=== PATIENT | female | born 2005 | race Asian ===

== ENCOUNTER 2023-01-04 17:43 | Emergency (ER) | payer OTHER ==
[2023-01-04 17:48] VITALS: BP 102/66; PULSE 91; RESP 18; TEMP 97.8; BMI 19.9
[2023-01-04] MEDS ORDERED: DEXTROMETHORPHAN/PROMETHAZINE 15 MG/6.25 MG/5 ML SYRUP PO ONE (18:20)
[2023-01-04 19:06] LABS: THROAT:GRP A STREP NOT DETECTED (NOTDETECTED)
== END 2023-01-04 20:22 | disposition home or self-care (01) ==
LOC: JERFT 17:43 → JER 17:43 → JERFT 20:22
DX: J02.8 Acute pharyngitis due to other specified organisms (principal); R05.1 Acute cough; R13.10 Dysphagia, unspecified; R09.81 Nasal congestion; R51.9 Headache, unspecified; Z20.822 Contact with and (suspected) exposure to COVID-19
CPT/HCPCS: 0241U-QW; 87651; 99283-25

== ENCOUNTER 2023-03-22 16:17 | Emergency (ER) | payer OTHER ==
[2023-03-22 16:22] VITALS: BP 104/65; PULSE 97; RESP 20; TEMP 98; BMI 18.4
[2023-03-22] MEDS ORDERED: KETOROLAC TROMETHAMINE 30 MG/1 ML VIAL ONE (17:41)
[2023-03-22] MEDS ORDERED: METOCLOPRAMIDE HCL INJECTION 10 MG/2 ML VIAL ONE (17:41)
[2023-03-22] MEDS ORDERED: ACETAMINOPHEN INJECTION 100 ML IVPB ONE (17:41)
[2023-03-22] MEDS: METOCLOPRAMIDE HCL INJECTION 10 MG/2 ML VIAL IVPUSH ONE (17:56)
[2023-03-22] MEDS: KETOROLAC TROMETHAMINE 30 MG/1 ML VIAL IVPUSH ONE (17:56)
[2023-03-22] MEDS ORDERED: MAGNESIUM SULFATE IN WATER 2 GM/50 ML IVPB IVPB ONE (18:03)
[2023-03-22] MEDS: ACETAMINOPHEN 1000 MG/100 ML BAG IVPB ONE (18:06)
[2023-03-22] MEDS: MAGNESIUM SULF 50% (8.12 MEQ/2 ML-1 GM VIAL) IVPB ONE (18:07)
[2023-03-22] MEDS: LACTATED RINGERS SOLUTION 1000 ML INFUS.BAG IV ONE (18:07)
[2023-03-22 18:10] LABS: BASO % 0.3 % (0-2.0); EOS % 0.1 % (0-4.5); HEMATOCRIT 36.2 % (32.4-45.2); HEMOGLOBIN 12.1 GM/dL (10.7-15.3); LYMPH % 10.5 % (8-40); MCH 29.5 pg (25.7-33.7); MCHC 33.5 g/dl (32.0-36.0); MEAN CELL VOLUME 88.1 fl (80-96); MEAN PLT VOLUME 8.3 fl (7.5-11.1); MONO % 7.2 % (3.8-10.2); NEUT % 81.9 % (42.8-82.8); PLATELET COUNT 219 10^3/uL (134-434); RBC 4.11 M/mm3 (3.60-5.2); RDW 13.7 % (11.6-15.6); WHITE BLOOD COUNT 11.3 K/mm3 (4.0-10.0)
[2023-03-22 18:39] LABS: POTASSIUM 4.2 mmol/L (3.5-5.1)
[2023-03-22 18:41] LABS: CALCIUM 9.1 mg/dL (8.5-10.1)
[2023-03-22 18:42] LABS: ALBUMIN 3.6 g/dl (3.4-5.0); BLOOD UREA NITROGEN 12.3 mg/dL (7-18); MAGNESIUM 1.8 mg/dL (1.8-2.4)
[2023-03-22 18:45] LABS: CREATININE 0.7 mg/dL (0.55-1.3)
[2023-03-22 18:47] LABS: BILIRUBIN,TOTAL 0.5 mg/dL (0.2-1); TOT PROT 7.4 g/dl (6.4-8.2)
[2023-03-22] MEDS ORDERED: AMOX TR/POT CLAV 500MG/125MG TABLETS (FP) ONE (18:51)
[2023-03-22] MEDS: AMOXICILLIN 500 MG CAPSULE (FP) PO ONE (18:53)
== END 2023-03-22 19:15 | disposition home or self-care (01) ==
LOC: JERFT 16:17
PROC: 3E033GC Introduction of Other Therapeutic Substance into Peripheral Vein, Percutaneous Approach (ICD-10-PCS; principal; 2023-03-22)
PROC: 3E033GC Introduction of Other Therapeutic Substance into Peripheral Vein, Percutaneous Approach (ICD-10-PCS; 2023-03-22)
PROC: 3E033NZ Introduction of Analgesics, Hypnotics, Sedatives into Peripheral Vein, Percutaneous Approach (ICD-10-PCS; 2023-03-22)
PROC: 3E0333Z Introduction of Anti-inflammatory into Peripheral Vein, Percutaneous Approach (ICD-10-PCS; 2023-03-22)
DX: J02.0 Streptococcal pharyngitis (principal); R11.0 Nausea; M79.10 Myalgia, unspecified site; R09.81 Nasal congestion; R51.9 Headache, unspecified; R63.8 Other symptoms and signs concerning food and fluid intake; Z20.822 Contact with and (suspected) exposure to COVID-19
CPT/HCPCS: 0241U-QW; 36415; 71046-TC-FY; 80053; 83735; 84703; 85025; 87651; 96374; 96375; 99284-25; J0131